=== PATIENT | male | born 1985 | race Caucasian/White ===

== ENCOUNTER 2022-12-19 14:38 | Emergency (ER) | payer BC ==
[2022-12-19] MEDS ORDERED: predniSONE 20 MG TAB ONE (16:57)
[2022-12-19] MEDS ORDERED: Ketorolac Tromethamine 30 MG/ML VIAL ONE (16:57)
== END 2022-12-19 17:20 | disposition home or self-care (01) ==
LOC: ERS 14:38
DX: M54.12 Radiculopathy, cervical region (principal); I10 Essential (primary) hypertension
CPT/HCPCS: 96372; 99283; J1885; J7512